=== PATIENT | female | born 1985 | race Caucasian/White ===

== ENCOUNTER → 2017-02-04 | Day surgery (SDC) | payer OTHER ==
[2017-01-30 11:35] VITALS: Ht 165.1 cm; Wt 54.5 kg
[~2017-02-04] VITALS: Ht 165.1 cm; Wt 54.5 kg
[~2017-02-04] MED LIST: ATROPINE SULFATE 0.1 MG/ML 5ML SYR IV PRN; BCPILLS PO; CEFAZOLIN 2000 MG/60 ML D5W IV SCH; DEXAMETHASONE SOD INJ 4 MG/ML VIAL ONE; EpHEDrine SULFATE INJ 50 MG/ML AMP IV PRN; FENTANYL CITRATE INJ 50 MCG/1 ML 2 ML VIAL ONE; HYDR-5688 PO; KETAMINE HCL INJ 50 MG/ML 10 ML VIAL ONE; LACTATED RINGER'S 1000ML 1,000 ML IV SCH; LIDOCAINE HCL 1% 20 ML VIAL ONE; LIDOCAINE HCL 2% 2 ML VIAL (20MG/ML) ONE; MIDAZOLAM HCL 1 MG/ML 2ML VIAL ONE; ONDANSETRON INJ 2 MG/ML 2 ML VIAL ONE; PRLSR20 PO; PROPOFOL IV EMULSION 10 MG/ML 20 ML VIAL IV ONE; SODIUM CHLORIDE 0.9% 1000ML 1,000 ML IV SCH; SODIUM CHLORIDE 0.9% INJ 10 ML VIAL ONE
--- NOTE | 2017-02-04 06:51 | History & Physical Bridge - [place] ---
H&P Re-Evaluation Bridge Note: I have examined the patient, reviewed the History & Physical and in the interval since the performance of the History & Physical I have noted the following changes of clinical significance: No changes noted
--- NOTE | 2017-02-04 07:31 | [facility] Post Operative Brief Note ---
Immediate Operative Summary Operative Date Feb 04, 2017. Pre-Operative Diagnosis Right Breast Mass Post-Operative Diagnosis Same Procedure(s) Performed Right Breast Mass Excision Surgeon Dr Anderson Supply Chain Engineer Surgeon(s) None Estimated Blood Loss 5ml Findings 1.5 cm mass- probable fibroadenoma using 1 % plain lidocaine , incision was made in upper breast 1.5 cm mass was easily dissected from surrounding tissue it was well circumscribed- deep tissue reapproximated with 2-0 plain , then skin closed using 5-0 monocryl and steri strips Specimens A: Right Breast Mass Anesthesia local/ sedation Complication(s) None Disposition Recovery Room / PACU
--- NOTE | 2017-02-04 07:36 | Discharge Instructions-SurgCtr ---
Discharge Instructions Date of Service Feb 04, 2017. Visit Reason for Visit: Right Breast Mass Discharge Discharge Diagnosis / Problem: Rt breast mass Discharge Goals Goal(s): Decrease discomfort, Improve function, Improve disease control Activity Recommendations Activity Limitations: as noted below Lifting Limitations: no more than 25 pounds Exercise/Sports Limitations: until after follow-up appointment May Resume Sexual Activity: when tolerated Shower/Bathe: keep incision dry (may shower over incision on 02/06) Driving or Machine Use: resume 1 day after discharge SPECIAL CARE INSTRUCTIONS: * Cover incisions and change daily for comfort/drainage. * Leave steri strips in place * May use ibuprofen for pain as tolerated. * Expect some swelling and bruising. Call your doctor if: * Temperature above 101 degrees * Pain not relieved by pain medicine ordered * There is increased drainage or redness from any incision * You have any unanswered questions or concerns [phone]. FOLLOW UP VISIT: If not already scheduled, please call the office for a follow-up visit. for 2 weeks- check up- no sutures to remove OFFICE PHONE NUMBER: Dr. Anderson Office Anesthesia . Post Anesthesia Instructions: If you have had General Anesthesia or IV Sedation: * Do not drive today. * Resume driving when surgeon permits. * Do not make important decisions or sign legal documents today. * Call surgeon for: 1. Temperature elevations greater than 101 degrees F. 2. Uncontrollable pain. 3. Excessive bleeding. 4. Persistent nausea and vomiting. 5. Medication intolerance (nausea, vomiting or rash). * For nausea and vomiting use only clear liquids such as: tea, soda, bouillon until nausea subsides, then gradually increase diet as tolerated. * If you have any concerns or questions, call your surgeon's office. If physician is unavailable and it is an emergency, call 911 or go to the nearest emergency room. . Diet Recommendations Home Diet: resume previous diet Procedures Procedures Performed: Right Breast Mass Excision Pending Studies Studies pending at discharge: no Medical Emergencies . Who to Call and When: Medical Emergencies: If at any time you feel your situation is an emergency, please call 911 immediately. . Non-Emergent Contact Non-Emergency issues call your: Primary Care Provider, Surgeon . . "Provider Documentation" section prepared by Gerard Anderson. .
[2017-02-04 08:06] VITALS: TEMP 36.6
--- NOTE | 2017-02-04 08:15 | Anesthesia Progress Nt - [facility] ---
Anesthesia Post Op Note Date & Time Feb 04, 2017 at 08:15 Vital Signs Pain Intensity: 0 Vital Signs Past 12 Hours Date Time Temp Pulse Resp B/P (MAP) Pulse Ox O2 Delivery O2 Flow Rate FiO2 02/04/17 07:56 64 18 02/04/17 07:56 63 18 114/75 99 02/04/17 07:55 36.8 63 20 114/75 100 Room Air 02/04/17 07:51 81 19 02/04/17 07:51 78 19 100 02/04/17 07:50 115/75 02/04/17 07:46 70 13 120/78 100 02/04/17 07:46 72 13 02/04/17 07:41 75 15 100 02/04/17 07:41 75 15 02/04/17 07:40 114/82 02/04/17 07:36 66 18 100 02/04/17 07:36 69 18 02/04/17 07:35 107/70 02/04/17 07:32 94/59 02/04/17 07:31 66 100 02/04/17 07:31 36.6 68 8 94/59 100 Mask 6 02/04/17 07:31 66 02/04/17 06:28 37.0 90 20 104/66 (79) 96 Room Air Notes Mental Status: alert / awake / arousable, participated in evaluation Pt Amnestic to Procedure: Yes Nausea / Vomiting: adequately controlled Pain: adequately controlled Airway Patency, RR, SpO2: stable & adequate BP & HR: stable & adequate Hydration State: stable & adequate Anesthetic Complications: no major complications apparent
[2017-02-04 08:32] VITALS: BP 107/70; PULSE 66; O2SAT 100
--- NOTE | 2017-02-07 10:38 | [facility] Operative Report ---
Operative Report Date of Service Feb 04, 2017 Operative Report Procedure excision of right breast mass. Patient was brought into the operating room placed on the operating room table in the supine position and her right breast was prepped and draped in usual fashion. Using 1% plain lidocaine the skin and subcutaneous tissue over the mass were anesthetized. Transverse incision was made over the mass and carried dissection down identifying the mass and placing a 3-0 silk suture in the mass for retraction. The mass within it was then easily dissected from surrounding tissue. The mass was approximately 1.5 cm and very well-circumscribed. It was sent for routine pathology. At this point the subcutaneous tissue was reapproximated using 20 plain catgut suture and then the skin reapproximated using subcuticular 5-0 Monocryl suture and Steri-Strips. A dressing was applied and she was taken to the recovery room in stable condition I attest to the content of the Intraoperative Record and any orders documented therein. Any exceptions are noted below.
== END | disposition home or self-care (01) ==
LOC: X.SURG 06:14
PROVIDERS: ATTEND Surgery
DX: D24.1 Benign neoplasm of right breast (principal); N92.0 Excessive and frequent menstruation with regular cycle; Z79.899 Other long term (current) drug therapy

== ENCOUNTER → 2017-07-02 | Outpatient (CLI) | payer OTHER ==
[~2017-07-02] MED LIST changes: -ATROPINE SULFATE 0.1 MG/ML 5ML SYR IV PRN; -CEFAZOLIN 2000 MG/60 ML D5W IV SCH; -DEXAMETHASONE SOD INJ 4 MG/ML VIAL ONE; -EpHEDrine SULFATE INJ 50 MG/ML AMP IV PRN; -FENTANYL CITRATE INJ 50 MCG/1 ML 2 ML VIAL ONE; -KETAMINE HCL INJ 50 MG/ML 10 ML VIAL ONE; -LACTATED RINGER'S 1000ML 1,000 ML IV SCH; -LIDOCAINE HCL 1% 20 ML VIAL ONE; -LIDOCAINE HCL 2% 2 ML VIAL (20MG/ML) ONE; -MIDAZOLAM HCL 1 MG/ML 2ML VIAL ONE; -ONDANSETRON INJ 2 MG/ML 2 ML VIAL ONE; -PROPOFOL IV EMULSION 10 MG/ML 20 ML VIAL IV ONE; -SODIUM CHLORIDE 0.9% 1000ML 1,000 ML IV SCH; -SODIUM CHLORIDE 0.9% INJ 10 ML VIAL ONE
== END | disposition home or self-care (01) ==
LOC: C.LABSPEC 09:55
PROVIDERS: ATTEND Physician Assistant
DX: K21.9 Gastro-esophageal reflux disease without esophagitis (principal)

== ENCOUNTER → 2017-11-05 | Outpatient (CLI) | payer OTHER ==
[~2017-11-05] MED LIST changes: -HYDR-5688 PO
--- NOTE | 2017-11-06 07:51 | MAMMOGRAPHY REPORT ---
BILATERAL DIGITAL DIAGNOSTIC MAMMOGRAM TOMOSYNTHESIS WITH CAD AND TARGETED BILATERAL ULTRASOUND: 11/05 CLINICAL HISTORY: 32-year-old woman with a personal history of a benign for [place] tumor in the 1 2:00 right breast status post surgical excision. Based on the final surgical pathology report, they reported 1 of the margins as positive. The patient underwent second opinion surgical consultation an d no additional surgery was performed. She currently presents with pain in the upper inner quadrant of the left breast. TECHNIQUE: Bilateral breast tomosynthesis in addition to standard 2D mammography was performed. Curre nt study was also evaluated with a Computer Aided Detection (CAD) system. COMPARISON: Comparison is made to exams dated: 01/15/2017 mammogram, 01/15/2017 ultrasound biopsy, 017 ultrasound, 05/18/2015 mammogram, 05/18/2015 ultrasound, and 02/16/2013 ultrasound - [facility]. BREAST COMPOSITION: The tissue of both breasts is heterogeneously dense, which may obscure small mas ses. FINDINGS: A square shaped pain marker overlies the upper inner quadrant of the left breast, denoting the area of pain described by the patient. There is a 7.8 x 6.8 mm partially circumscribed mass in t he inferior far posterior left breast on the MLO view, not definitely seen on the CC view but thought to project laterally based on the tomosynthesis localizer bar. No associated microcalcification or architectural distortion. Further characterization with ultrasound was performed. No other obvious n ew mass, architectural distortion, asymmetry or calcifications seen in the left breast. 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 A ribbon-shaped biopsy marker clip remains in the 12:00 far posterior right breast, which was placed during biopsy of the phyllodes, and may have been located just posteri or to the mass and therefore not removed at time of excision based on palpation. No new suspicious m asses, calcifications, areas of architectural distortion or asymmetries are seen in the right breast. Targeted ultrasound was performed in both breasts. Ultrasound was performed over the skin surgical s car in the 12:00 right breast, 4 cm from the nipple. There is evidence of architectural distortion f rom the surgery. No residual or evidence of a suspicious solid mass is seen. 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 Ultrasound performed in the upper inner quadrant of the left breast in the area of pain described by the patient demonstrates no suspicious solid or cystic mass. No foc al skin thickening or drainable fluid collection. There is a lobulated hypoechoic solid versus cysti c mass in the 12:00 left breast, 2 cm from the nipple, measuring 4.9 x 2.9 x 4.6 mm. This has not si gnificantly changed dating back to 2014 and is considered benign. In the 4:00 left breast, 7 cm from the nipple, there is a lobulated hypoechoic solid-appearing mass measuring 8.5 x 3.5 x 7.0 mm. This could represent an additional fibroadenoma and may correspond with the mammographic mass seen on the left MLO view. However, given that it is newly visualized a short interval follow-up targeted left breast ultrasound is recommended to ensure stability in 6 months. IMPRESSION: ACR-BI-RADS CATEGORY 3: PROBABLY BENIGN, TARGETED ULTRASOUND ACR-BI-RADS CATEGORY 3: PRO BABLY BENIGN 1. There is evidence of prior surgical excision and mass removal from the 12:00 right breast, which represented a benign phyllodes tumor. The biopsy marker clip placed after ultrasound-guided core bio psy of this mass remains in the breast. However, there is no evidence of residual mass in the 12:00 right breast in the location of prior phyllodes and the biopsy marker clip was likely located outside of the mass just distal to the deep/posterior margin. Therefore, could consider continued close fol low-up imaging to ensure stability in the right breast given the residual biopsy clip and positive ma rgin identified on final surgical pathology. Option of repeat surgical excision to remove the biopsy clip were also discussed with the patient but we will opt to conservatively follow with imaging at t his time. 2. There is a 7.8 x 6.8 mm mass in the inferior posterior left breast that is newly visualized on th e MLO view, which may correspond to a benign-appearing solid mass in the 4:00 left breast on ultrasou nd. This has a similar appearance to the stable masses in the 12:00 left breast and 9:00 right breas t and could represent a fibroadenoma. Given that it is newly visualized, a six-month follow-up targe cassidy left breast ultrasound is recommended to ensure stability. At the time of follow-up, repeat targ eted ultrasound should also be performed in the area of prior surgery in the right breast, to ensure stability given the positive margin. These results and recommendations were discussed with the patient at the time of the exam. She tenta tively scheduled the follow-up appointment prior to leaving our department. Approximately 10% of breast cancers are not detected with mammography. A negative mammographic report should not delay biopsy if a clinically suggestive mass is present. Paige Vasquez M.D. ay/:11/05/2017 17:00:36 Hydrometeorology Teacher: Liv Sanders, [facility] letter sent: Follow Up Recommended 3 BI-RADS Code: ACR-BI-RADS Category 3: Probably Benign Ultrasound BI-RADS: ACR-BI-RADS Category 3: Pr obably Benign
== END | disposition home or self-care (01) ==
LOC: C.MAMM 13:11
PROVIDERS: ATTEND Physician Assistant Medical
DX: N64.4 Mastodynia (principal)